=== PATIENT | male | born 1995 | race Caucasian/White ===

== ENCOUNTER 2021-08-22 10:09 | Emergency (ER) | payer OTHER ==
[~2021-08-22] VITALS: Ht 172.7 cm; Wt 90.0 kg
[2021-08-22] MEDS ORDERED: OLANZAPINE 10 MG/VIAL IM STA (10:21)
[2021-08-22] MEDS ORDERED: MIDAZOLAM HCL 2 MG/2 ML VIAL IM ONE (10:30)
[2021-08-22 10:40] LABS: EOSINOPHILS % 1.9 % (0.0-5.0); HEMATOCRIT. 45.6 % (42.0-52.0); HEMOGLOBIN. 15.4 g/dL (14.0-18.0); MEAN CORPUSCULAR HEMOGLOBIN 29.9 pg (28.0-32.0); MEAN CORPUSCULAR VOLUME 88.6 fL (80.0-94.0); MEAN PLATELET VOLUME 7.1 fl (7.4-10.4); MONOCYTES % 9.3 % (2.0-8.0); NEUTROPHILS % 53.8 % (40.0-76.0); PLATELET 360 x1000/uL (130-400); RED BLOOD CELL COUNT 5.15 mill/uL (4.7-6.1); RED CELL DISTRIBUTION WIDTH 14.1 % (11.6-14.6)
[2021-08-22 10:41] LABS: CHLORIDE 107 mEq/L (98-107)
[2021-08-22 10:49] LABS: ETHANOL BLOOD < 10 mg/dL
[2021-08-22 12:00] LABS: CLARITY URINE CLEAR (CLEAR); COLOR URINE DARK YELLOW (YELLOW); KETONES URINE TRACE (NEGATIVE); LEUKOCYTE ESTERASE URINE NEGATIVE (NEGATIVE); NITRITE URINE NEGATIVE (NEGATIVE); OCCULT BLOOD URINE NEGATIVE (NEGATIVE); PH URINE 5.5 (4.5-8.0); PROTEIN URINE 3+ (NEGATIVE)
[2021-08-22 12:20] LABS: *AMPHETAMINES SCREEN URINE PRESUMTIVE POSITIVE (NEGATIVE); *BARBITURATES SCREEN URINE NEGATIVE (NEGATIVE); *BENZODIAZEPINES SCREEN URINE NEGATIVE (NEGATIVE); *COCAINE SCREEN URINE NEGATIVE (NEGATIVE); CANNABINOID URINE SCREEN NEGATIVE (NEGATIVE); METHADONE URINE SCREEN NEGATIVE (NEGATIVE); OPIATES URINE SCREEN NEGATIVE (NEGATIVE); PHENCYCLIDINE URINE SCREEN NEGATIVE (NEGATIVE)
[2021-08-22 13:30] VITALS: BP 110/75
== END 2021-08-22 13:36 ==
LOC: EDBD 10:09 → ER 10:09
DX: T43.621A Poisoning by amphetamines, accidental (unintentional), initial encounter (principal); T40.991A Poisoning by other psychodysleptics [hallucinogens], accidental (unintentional), initial encounter; R55 Syncope and collapse; R45.1 Restlessness and agitation; R00.0 Tachycardia, unspecified; R03.0 Elevated blood-pressure reading, without diagnosis of hypertension; Y92.810 Car as the place of occurrence of the external cause; Z78.1 Physical restraint status
CPT/HCPCS: 36415; 70450; 80053; 80305; 80320; 81003; 85025; 93005; 96372; 99285; J2250; J3490; G0480

== ENCOUNTER 2022-02-19 21:55 | Inpatient (IN) | payer SELFPAY ==
[~2022-02-19] VITALS: Ht 180.3 cm; Wt 88.0 kg
[2022-02-19] MEDS ORDERED: ONDANSETRON HCL 4MG/2ML INJ IV STA (22:37)
[2022-02-19] MEDS ORDERED: SODIUM CHLORIDE 0.9% 1,000 ML IV ONE (22:45)
[2022-02-19] MEDS ORDERED: ETOMIDATE 2MG/ML 10ML VIAL IV ONE (23:15)
[2022-02-19] MEDS ORDERED: MIDAZOLAM HCL 100 MG in DEXT 5% WATER 80 ML IV ONE (23:15)
[2022-02-19] MEDS ORDERED: SUCCINYLCHOLINE CHLORIDE 200MG/10ML IV ONE (23:15)
[2022-02-19] MEDS ORDERED: PROPOFOL 10MG/ML 100ML 100 ML IV ONE (23:15)
[2022-02-19 23:27] LABS: BASOPHILS % 0.4 % (0.0-2.0); EOSINOPHILS % 0.5 % (0.0-5.0); HEMATOCRIT. 44.4 % (42.0-52.0); HEMOGLOBIN. 14.8 g/dL (14.0-18.0); LYMPHOCYTES % 11.5 % (20.0-50.0); MEAN CORPUSCULAR HEMOGLOBIN 29.8 pg (28.0-32.0); MEAN CORPUSCULAR VOLUME 89.5 fL (80.0-94.0); MEAN PLATELET VOLUME 7.4 fl (7.4-10.4); MONOCYTES % 2.6 % (2.0-8.0); PLATELET 318 x1000/uL (130-400); RED BLOOD CELL COUNT 4.96 mill/uL (4.7-6.1); RED CELL DISTRIBUTION WIDTH 13.5 % (11.6-14.6)
[2022-02-19 23:33] LABS: CHLORIDE 104 mEq/L (98-107)
[2022-02-19 23:44] LABS: CREATINE KINASE 64 IU/L (39-308); ETHANOL BLOOD < 10 mg/dL
[2022-02-19] MEDS ORDERED: PROPOFOL 10MG/ML 100ML 100 ML IV PRN (23:45)
[2022-02-20] VITALS (62 sets, daily range): BP systolic 67–135; BP diastolic 37–82
[2022-02-20 00:58] LABS: BG DEOXYHEMOGLOBIN 1.3 % (0.0-5.0); BG FRACTION INSPIRED OXYGEN 100; BG HCO3 ACT 25.9 mmol/L (22.0-26.0); BG METHEMOGLOBIN 0.4 % (0.0-1.5); BG OXYGEN SATURATION 98.7 % (92.0-98.5); BG OXYHEMOGLOBIN 97.3 % (94.0-97.0); BG PCO2 69.8 mmHg (35.0-45.0); BG PH 7.188 (7.350-7.450); BG PO2 151.5 mmHg (75.0-100.0); BG SAMPLE SITE RIGHT RADIAL; BG TOTAL RESPIRATORY RATE 20 b/min; BG VENT MODE VENT - AC
[2022-02-20] MEDS ORDERED: FUROSEMIDE 40MG/4ML VIAL IVP ONE (01:00)
[2022-02-20 03:31] LABS: *AMPHETAMINES SCREEN URINE PRESUMTIVE POSITIVE (NEGATIVE); *BARBITURATES SCREEN URINE NEGATIVE (NEGATIVE); *BENZODIAZEPINES SCREEN URINE PRESUMTIVE POSITIVE (NEGATIVE); *COCAINE SCREEN URINE NEGATIVE (NEGATIVE); CANNABINOID URINE SCREEN PRESUMTIVE POSITIVE (NEGATIVE); METHADONE URINE SCREEN NEGATIVE (NEGATIVE); OPIATES URINE SCREEN NEGATIVE (NEGATIVE); PHENCYCLIDINE URINE SCREEN NEGATIVE (NEGATIVE)
[2022-02-20] MEDS ORDERED: ONDANSETRON HCL 4MG/2ML INJ IV PRN (05:30)
[2022-02-20] MEDS ORDERED: ACETAMINOPHEN 325MG TABLET PO PRN (05:30)
[2022-02-20] MEDS ORDERED: DIPHENHYDRAMINE 50MG/ML VIAL IV PRN (05:30)
[2022-02-20] MEDS ORDERED: CLONIDINE 0.1MG TABLET PO PRN (05:30)
[2022-02-20] MEDS ORDERED: AZITHROMYCIN 500 MG in DEXT 5% WATER 250 ML IV SCH (05:30)
[2022-02-20] MEDS ORDERED: PROPOFOL 200MG/20ML VIAL IV ONE (06:15)
[2022-02-20] MEDS ORDERED: CEFTRIAXONE 1 G PREMIX 50 ML IV SCH (06:45)
[2022-02-20] MEDS ORDERED: PROPOFOL 10MG/ML 100ML 100 ML IV PRN (09:30)
[2022-02-20 09:48] LABS: BG BASE EXCESS -0.3 mmol/L (-2.0-2.0); BG CARBOXYHEMOGLOBIN 0.9 % (0.5-1.5); BG FRACTION INSPIRED OXYGEN 100; BG HCO3 ACT 25.7 mmol/L (22.0-26.0); BG METHEMOGLOBIN 0.6 % (0.0-1.5); BG OXYHEMOGLOBIN 98.5 % (94.0-97.0); BG PH 7.356 (7.350-7.450); BG PO2 496.7 mmHg (75.0-100.0); BG SAMPLE SITE RIGHT RADIAL; BG TOTAL HEMOGLOBIN 15.3 g/dL (12.0-18.0); BG VENT MODE VENT - AC
[2022-02-20] MEDS: MIDAZOLAM HCL 100 MG in SODIUM CHLORIDE 0.9% 80 ML IV PRN ×2 (10:38→20:50)
[2022-02-20] MEDS: FUROSEMIDE 40MG/4ML VIAL IV SCH (10:38)
[2022-02-20] MEDS: AZITHROMYCIN 500 MG in DEXT 5% WATER 250 ML IV SCH (11:42)
[2022-02-20] MEDS: CEFTRIAXONE 1,000 MG in DEXTROSE 5% WATER 50 ML IV SCH (13:37)
[2022-02-20] MEDS: IPRATROPIUM/ALBUTEROL 0.5-3(2.5)MG/3ML NEB HHN SCH (13:41)
[2022-02-20 13:44] LABS: CREATINE KINASE 54 IU/L (39-308); CREATINE KINASE MB FRACTION < 1.0 ng/mL (0.5-3.6)
[2022-02-21] VITALS (54 sets, daily range): BP systolic 87–147; BP diastolic 51–88
[2022-02-21] MEDS: PROPOFOL 10MG/ML 100ML 100 ML IV PRN ×4 (03:48→23:00)
[2022-02-21 05:42] LABS: BASOPHILS % 0.4 % (0.0-2.0); HEMATOCRIT. 42.8 % (42.0-52.0); HEMOGLOBIN. 14.3 g/dL (14.0-18.0); LYMPHOCYTES % 16.4 % (20.0-50.0); MEAN CORPUSCULAR HEMOGLOBIN 29.7 pg (28.0-32.0); MEAN CORPUSCULAR VOLUME 89.2 fL (80.0-94.0); MEAN PLATELET VOLUME 7.9 fl (7.4-10.4); MONOCYTES % 4.9 % (2.0-8.0); NEUTROPHILS % 77.3 % (40.0-76.0); PLATELET 197 x1000/uL (130-400); RED CELL DISTRIBUTION WIDTH 13.6 % (11.6-14.6)
[2022-02-21 08:16] LABS: BG BASE EXCESS 2.1 mmol/L (-2.0-2.0); BG DEOXYHEMOGLOBIN 2.1 % (0.0-5.0); BG HCO3 ACT 27.5 mmol/L (22.0-26.0); BG METHEMOGLOBIN 0.3 % (0.0-1.5); BG OXYGEN SATURATION 97.9 % (92.0-98.5); BG OXYHEMOGLOBIN 96.6 % (94.0-97.0); BG PCO2 45.9 mmHg (35.0-45.0); BG PH 7.396 (7.350-7.450); BG PO2 99.9 mmHg (75.0-100.0); BG SAMPLE SITE RIGHT RADIAL; BG TOTAL HEMOGLOBIN 14.7 g/dL (12.0-18.0); BG VENT MODE VENT - AC
[2022-02-21] MEDS ORDERED: LORAZEPAM 2MG/ML CPJ IV PRN (09:45)
[2022-02-21] MEDS ORDERED: RISPERIDONE 1MG TABLET PO NR (09:45)
[2022-02-21] MEDS: IPRATROPIUM/ALBUTEROL 0.5-3(2.5)MG/3ML NEB HHN SCH (09:47)
[2022-02-21] MEDS: MIDAZOLAM HCL 100 MG in SODIUM CHLORIDE 0.9% 80 ML IV PRN (09:59)
[2022-02-21] MEDS: FUROSEMIDE 40MG/4ML VIAL IV SCH (10:00)
[2022-02-21 10:21] LABS: CHLORIDE 103 mEq/L (98-107)
[2022-02-21] MEDS: CEFTRIAXONE 1,000 MG in DEXTROSE 5% WATER 50 ML IV SCH (11:14)
[2022-02-21] MEDS: AZITHROMYCIN 500 MG in DEXT 5% WATER 250 ML IV SCH (11:14)
[2022-02-21] MEDS: SODIUM CHLORIDE 0.9% 1,000 ML IV SCH ×2 (11:15→21:52)
[2022-02-21 13:21] LABS: CLARITY URINE CLEAR (CLEAR); COLOR URINE YELLOW (YELLOW); KETONES URINE NEGATIVE (NEGATIVE); LEUKOCYTE ESTERASE URINE 1+ (NEGATIVE); NITRITE URINE NEGATIVE (NEGATIVE); OCCULT BLOOD URINE NEGATIVE (NEGATIVE); PH URINE 5.5 (4.5-8.0); PROTEIN URINE NEGATIVE (NEGATIVE); SPECIFIC GRAVITY URINE 1.006 (1.005-1.030)
[2022-02-21] MEDS ORDERED: IOHEXOL-350 100 ML BOTTLE ONE (14:42)
[2022-02-21] MEDS: IPRATROPIUM BROMIDE (0.02%) 0.5MG/2.5ML NEB HHN SCH ×2 (15:13→20:29)
[2022-02-21] MEDS: ACETYLCYSTEINE 100MG/ML 10% VIAL 4ML INH SCH (15:13)
[2022-02-21] MEDS ORDERED: ACETAMINOPHEN 650MG/20.3ML UDC PO PRN (16:45)
[2022-02-21] MEDS ORDERED: ACETAMINOPHEN 325MG TABLET NG PRN (17:30)
[2022-02-21] MEDS ORDERED: FENTANYL CITRATE/PF 50MCG/ML 2ML VIAL IV NR (18:15)
[2022-02-21] MEDS ORDERED: FENTANYL 2500MCG/250ML PMX 250 ML IV ONE (19:00)
[2022-02-21] MEDS: FENTANYL CITRATE 2,500 MCG in SODIUM CHLORIDE 0.9% 200 ML IV PRN (19:53)
[2022-02-21] MEDS: RISPERIDONE 1MG TABLET PO SCH (21:20)
[2022-02-22] VITALS (59 sets, daily range): BP systolic 69–135; BP diastolic 33–80
[2022-02-22] MEDS: IPRATROPIUM BROMIDE (0.02%) 0.5MG/2.5ML NEB HHN SCH ×4 (00:26→21:34)
[2022-02-22] MEDS: ACETYLCYSTEINE 100MG/ML 10% VIAL 4ML INH SCH ×3 (00:26→14:47)
[2022-02-22] MEDS: PROPOFOL 10MG/ML 100ML 100 ML IV PRN ×4 (04:19→19:09)
[2022-02-22 05:33] LABS: BASOPHILS % 0.4 % (0.0-2.0); EOSINOPHILS % 3.4 % (0.0-5.0); HEMATOCRIT. 38.6 % (42.0-52.0); HEMOGLOBIN. 13.2 g/dL (14.0-18.0); LYMPHOCYTES % 18.8 % (20.0-50.0); MEAN CORPUSCULAR HEMOGLOBIN 29.7 pg (28.0-32.0); MEAN CORPUSCULAR VOLUME 86.8 fL (80.0-94.0); MEAN PLATELET VOLUME 7.9 fl (7.4-10.4); NEUTROPHILS % 72.4 % (40.0-76.0); PLATELET 202 x1000/uL (130-400); RED BLOOD CELL COUNT 4.44 mill/uL (4.7-6.1); RED CELL DISTRIBUTION WIDTH 13.7 % (11.6-14.6)
[2022-02-22 05:47] LABS: CHLORIDE 102 mEq/L (98-107)
[2022-02-22] MEDS: RISPERIDONE 1MG TABLET PO SCH (08:23)
[2022-02-22] MEDS: FUROSEMIDE 40MG/4ML VIAL IV SCH (08:23)
[2022-02-22 09:05] LABS: BG BASE EXCESS 2.1 mmol/L (-2.0-2.0); BG CARBOXYHEMOGLOBIN 1.8 % (0.5-1.5); BG DEOXYHEMOGLOBIN 1.1 % (0.0-5.0); BG FRACTION INSPIRED OXYGEN 35; BG HCO3 ACT 27.9 mmol/L (22.0-26.0); BG METHEMOGLOBIN 0.3 % (0.0-1.5); BG OXYGEN SATURATION 98.9 % (92.0-98.5); BG OXYHEMOGLOBIN 96.8 % (94.0-97.0); BG PCO2 48.2 mmHg (35.0-45.0); BG PO2 110.1 mmHg (75.0-100.0); BG SAMPLE SITE RIGHT RADIAL; BG TOTAL HEMOGLOBIN 13.5 g/dL (12.0-18.0); BG VENT MODE VENT - AC
[2022-02-22] MEDS: AZITHROMYCIN 500 MG in DEXT 5% WATER 250 ML IV SCH (11:40)
[2022-02-22] MEDS: SODIUM CHLORIDE 0.9% 1,000 ML IV SCH ×2 (11:40→20:06)
[2022-02-22] MEDS: CEFTRIAXONE 1,000 MG in DEXTROSE 5% WATER 50 ML IV SCH (13:05)
[2022-02-22] MEDS: METRONIDAZOLE 500MG TABLET PO SCH (15:28)
[2022-02-23] VITALS (63 sets, daily range): BP systolic 101–149; BP diastolic 52–92
[2022-02-23] MEDS: IPRATROPIUM BROMIDE (0.02%) 0.5MG/2.5ML NEB HHN SCH ×4 (00:59→19:42)
[2022-02-23] MEDS: ACETYLCYSTEINE 100MG/ML 10% VIAL 4ML INH SCH ×3 (00:59→14:54)
[2022-02-23] MEDS: PROPOFOL 10MG/ML 100ML 100 ML IV PRN ×4 (04:06→22:03)
[2022-02-23] MEDS: RISPERIDONE 1MG TABLET PO SCH ×3 (04:35→21:10)
[2022-02-23] MEDS: METRONIDAZOLE 500MG TABLET PO SCH ×4 (04:35→21:10)
[2022-02-23 04:57] LABS: BASOPHILS % 0.4 % (0.0-2.0); EOSINOPHILS % 4.4 % (0.0-5.0); HEMATOCRIT. 36.1 % (42.0-52.0); HEMOGLOBIN. 12.5 g/dL (14.0-18.0); LYMPHOCYTES % 25.9 % (20.0-50.0); MEAN CORPUSCULAR HEMOGLOBIN 29.7 pg (28.0-32.0); MEAN CORPUSCULAR VOLUME 85.9 fL (80.0-94.0); MEAN PLATELET VOLUME 7.1 fl (7.4-10.4); MONOCYTES % 8.4 % (2.0-8.0); NEUTROPHILS % 60.9 % (40.0-76.0); PLATELET 241 x1000/uL (130-400); RED BLOOD CELL COUNT 4.21 mill/uL (4.7-6.1); RED CELL DISTRIBUTION WIDTH 13.5 % (11.6-14.6)
[2022-02-23 05:16] LABS: CHLORIDE 104 mEq/L (98-107)
[2022-02-23] MEDS: SODIUM CHLORIDE 0.9% 1,000 ML IV SCH ×3 (08:23→23:24)
[2022-02-23 08:47] LABS: BG BASE EXCESS 6.6 mmol/L (-2.0-2.0); BG CARBOXYHEMOGLOBIN 0.1 % (0.5-1.5); BG DEOXYHEMOGLOBIN 2.1 % (0.0-5.0); BG HCO3 ACT 32.5 mmol/L (22.0-26.0); BG METHEMOGLOBIN 0.3 % (0.0-1.5); BG OXYGEN SATURATION 97.9 % (92.0-98.5); BG OXYHEMOGLOBIN 97.5 % (94.0-97.0); BG PCO2 51.8 mmHg (35.0-45.0); BG PH 7.416 (7.350-7.450); BG PO2 104.3 mmHg (75.0-100.0); BG SAMPLE SITE RIGHT RADIAL; BG TOTAL HEMOGLOBIN 13.3 g/dL (12.0-18.0); BG VENT MODE VENT - AC
[2022-02-23] MEDS: FUROSEMIDE 40MG/4ML VIAL IV SCH (09:14)
[2022-02-23] MEDS: AZITHROMYCIN 500 MG in DEXT 5% WATER 250 ML IV SCH (10:14)
[2022-02-23] MEDS: CEFTRIAXONE 1,000 MG in DEXTROSE 5% WATER 50 ML IV SCH (12:15)
[2022-02-23] MEDS: PANTOPRAZOLE SODIUM 40 MG/VIAL IV SCH (13:51)
[2022-02-23] MEDS: ENOXAPARIN 40MG/0.4ML SYR SUBCUT SCH (13:51)
[2022-02-23] MEDS: CEFAZOLIN 2,000 MG in DEXT 5% WATER 100 ML IV SCH ×2 (13:53→21:10)
[2022-02-24] VITALS (76 sets, daily range): BP systolic 95–134; BP diastolic 34–94
[2022-02-24] MEDS: IPRATROPIUM BROMIDE (0.02%) 0.5MG/2.5ML NEB HHN SCH ×3 (00:38→14:36)
[2022-02-24] MEDS: ACETYLCYSTEINE 100MG/ML 10% VIAL 4ML INH SCH ×3 (00:38→14:36)
[2022-02-24] MEDS: PROPOFOL 10MG/ML 100ML 100 ML IV PRN ×4 (01:24→22:57)
[2022-02-24 05:38] LABS: CHLORIDE 102 mEq/L (98-107)
[2022-02-24] MEDS: CEFAZOLIN 2,000 MG in DEXT 5% WATER 100 ML IV SCH ×3 (05:40→22:46)
[2022-02-24] MEDS: METRONIDAZOLE 500MG TABLET PO SCH ×3 (05:41→22:58)
[2022-02-24 07:38] LABS: BASOPHILS % 0.5 % (0.0-2.0); EOSINOPHILS % 6.5 % (0.0-5.0); HEMATOCRIT. 36.9 % (42.0-52.0); HEMOGLOBIN. 12.5 g/dL (14.0-18.0); LYMPHOCYTES % 32.2 % (20.0-50.0); MEAN CORPUSCULAR HEMOGLOBIN 29.2 pg (28.0-32.0); MEAN CORPUSCULAR VOLUME 86.2 fL (80.0-94.0); MEAN PLATELET VOLUME 6.9 fl (7.4-10.4); MONOCYTES % 11.6 % (2.0-8.0); NEUTROPHILS % 49.2 % (40.0-76.0); PLATELET 252 x1000/uL (130-400); RED BLOOD CELL COUNT 4.27 mill/uL (4.7-6.1); RED CELL DISTRIBUTION WIDTH 13.4 % (11.6-14.6)
[2022-02-24] MEDS: FENTANYL CITRATE 2,500 MCG in SODIUM CHLORIDE 0.9% 200 ML IV PRN (07:38)
[2022-02-24] MEDS: FUROSEMIDE 40MG/4ML VIAL IV SCH (08:11)
[2022-02-24] MEDS: RISPERIDONE 1MG TABLET PO SCH ×2 (08:11→22:43)
[2022-02-24] MEDS: PANTOPRAZOLE SODIUM 40 MG/VIAL IV SCH (08:11)
[2022-02-24] MEDS: ENOXAPARIN 40MG/0.4ML SYR SUBCUT SCH (08:12)
[2022-02-24 08:41] LABS: BG BASE EXCESS 4.1 mmol/L (-2.0-2.0); BG CARBOXYHEMOGLOBIN 0.3 % (0.5-1.5); BG DEOXYHEMOGLOBIN 2.4 % (0.0-5.0); BG HCO3 ACT 29.4 mmol/L (22.0-26.0); BG METHEMOGLOBIN 0.3 % (0.0-1.5); BG OXYGEN SATURATION 97.6 % (92.0-98.5); BG PCO2 46.4 mmHg (35.0-45.0); BG PH 7.419 (7.350-7.450); BG SAMPLE SITE RIGHT RADIAL; BG TOTAL HEMOGLOBIN 13.1 g/dL (12.0-18.0); BG VENT MODE VENT - AC
[2022-02-24] MEDS ORDERED: RISPERIDONE 1MG TABLET PO NR (11:45)
[2022-02-24] MEDS: GUAIFENESIN 200MG/10ML SUGAR FREE UDC PO SCH ×2 (12:11→19:00)
[2022-02-24] MEDS: AZITHROMYCIN 500 MG in DEXT 5% WATER 250 ML IV SCH (12:13)
[2022-02-24] MEDS: IPRATROPIUM/ALBUTEROL 0.5-3(2.5)MG/3ML NEB HHN SCH ×2 (16:40→20:32)
[2022-02-24] MEDS: SODIUM CHLORIDE 0.9% 1,000 ML IV SCH (16:42)
[2022-02-24] MEDS ORDERED: GUAIFENESIN 600MG ER TABLET PO SCH (21:00)
[2022-02-25] VITALS (60 sets, daily range): BP systolic 102–144; BP diastolic 54–85
[2022-02-25] MEDS: ACETYLCYSTEINE 100MG/ML 10% VIAL 4ML INH SCH ×4 (01:01→23:57)
[2022-02-25] MEDS: IPRATROPIUM/ALBUTEROL 0.5-3(2.5)MG/3ML NEB HHN SCH ×7 (01:01→23:58)
[2022-02-25] MEDS: PROPOFOL 10MG/ML 100ML 100 ML IV PRN ×6 (02:15→22:55)
[2022-02-25 05:37] LABS: BASOPHILS % 0.8 % (0.0-2.0); EOSINOPHILS % 5.8 % (0.0-5.0); HEMATOCRIT. 36.6 % (42.0-52.0); HEMOGLOBIN. 12.7 g/dL (14.0-18.0); LYMPHOCYTES % 31.7 % (20.0-50.0); MEAN CORPUSCULAR HEMOGLOBIN 29.7 pg (28.0-32.0); MEAN CORPUSCULAR VOLUME 85.6 fL (80.0-94.0); MEAN PLATELET VOLUME 7.4 fl (7.4-10.4); MONOCYTES % 11.6 % (2.0-8.0); NEUTROPHILS % 50.1 % (40.0-76.0); PLATELET 263 x1000/uL (130-400); RED BLOOD CELL COUNT 4.27 mill/uL (4.7-6.1); RED CELL DISTRIBUTION WIDTH 13.4 % (11.6-14.6)
[2022-02-25 06:05] LABS: CHLORIDE 106 mEq/L (98-107)
[2022-02-25] MEDS: CEFAZOLIN 2,000 MG in DEXT 5% WATER 100 ML IV SCH ×3 (06:12→22:33)
[2022-02-25] MEDS: METRONIDAZOLE 500MG TABLET PO SCH ×3 (06:16→20:05)
[2022-02-25] MEDS: GUAIFENESIN 200MG/10ML SUGAR FREE UDC PO SCH ×5 (07:21→22:56)
[2022-02-25 08:28] LABS: BG BASE EXCESS 2.2 mmol/L (-2.0-2.0); BG CARBOXYHEMOGLOBIN 0.8 % (0.5-1.5); BG DEOXYHEMOGLOBIN 1.6 % (0.0-5.0); BG FRACTION INSPIRED OXYGEN 35; BG HCO3 ACT 26.1 mmol/L (22.0-26.0); BG METHEMOGLOBIN 0.3 % (0.0-1.5); BG OXYGEN SATURATION 98.4 % (92.0-98.5); BG OXYHEMOGLOBIN 97.3 % (94.0-97.0); BG PCO2 38.4 mmHg (35.0-45.0); BG PH 7.451 (7.350-7.450); BG PO2 110.7 mmHg (75.0-100.0); BG SAMPLE SITE RIGHT RADIAL; BG TOTAL HEMOGLOBIN 13.3 g/dL (12.0-18.0); BG VENT MODE VENT - AC
[2022-02-25] MEDS: PANTOPRAZOLE SODIUM 40 MG/VIAL IV SCH (08:54)
[2022-02-25] MEDS: ENOXAPARIN 40MG/0.4ML SYR SUBCUT SCH (08:54)
[2022-02-25] MEDS: RISPERIDONE 1MG TABLET PO SCH ×2 (08:54→20:05)
[2022-02-25] MEDS: SODIUM CHLORIDE 0.9% 1,000 ML IV SCH ×2 (08:54→14:59)
[2022-02-25] MEDS: FUROSEMIDE 40MG/4ML VIAL IV SCH (08:54)
[2022-02-25] MEDS ORDERED: LORAZEPAM 2MG/ML CPJ IV NR (11:00)
[2022-02-26] VITALS (81 sets, daily range): BP systolic 90–164; BP diastolic 26–130
[2022-02-26] MEDS: PROPOFOL 10MG/ML 100ML 100 ML IV PRN ×6 (02:21→20:36)
[2022-02-26] MEDS: SODIUM CHLORIDE 0.9% 1,000 ML IV SCH ×2 (02:21→13:13)
[2022-02-26] MEDS: IPRATROPIUM/ALBUTEROL 0.5-3(2.5)MG/3ML NEB HHN SCH ×5 (03:55→20:54)
[2022-02-26] MEDS: CEFAZOLIN 2,000 MG in DEXT 5% WATER 100 ML IV SCH ×3 (05:10→21:21)
[2022-02-26] MEDS: GUAIFENESIN 200MG/10ML SUGAR FREE UDC PO SCH ×4 (05:10→23:58)
[2022-02-26] MEDS: METRONIDAZOLE 500MG TABLET PO SCH ×3 (05:10→21:21)
[2022-02-26 05:33] LABS: HEMATOCRIT. 36.8 % (42.0-52.0); HEMOGLOBIN. 12.7 g/dL (14.0-18.0); MEAN CORPUSCULAR HEMOGLOBIN 29.8 pg (28.0-32.0); MEAN CORPUSCULAR VOLUME 86.3 fL (80.0-94.0); MEAN PLATELET VOLUME 7.3 fl (7.4-10.4); PLATELET 267 x1000/uL (130-400); RED BLOOD CELL COUNT 4.26 mill/uL (4.7-6.1); RED CELL DISTRIBUTION WIDTH 13.3 % (11.6-14.6)
[2022-02-26 05:49] LABS: CHLORIDE 105 mEq/L (98-107)
[2022-02-26] MEDS: ACETYLCYSTEINE 100MG/ML 10% VIAL 4ML INH SCH (07:40)
[2022-02-26] MEDS: FENTANYL CITRATE 2,500 MCG in SODIUM CHLORIDE 0.9% 200 ML IV PRN (08:14)
[2022-02-26] MEDS: FUROSEMIDE 40MG/4ML VIAL IV SCH (08:32)
[2022-02-26] MEDS: RISPERIDONE 1MG TABLET PO SCH ×2 (08:32→21:58)
[2022-02-26] MEDS: ENOXAPARIN 40MG/0.4ML SYR SUBCUT SCH (08:32)
[2022-02-26] MEDS: PANTOPRAZOLE SODIUM 40 MG/VIAL IV SCH (08:32)
[2022-02-26 08:48] LABS: BG CARBOXYHEMOGLOBIN 0.6 % (0.5-1.5); BG DEOXYHEMOGLOBIN 2.9 % (0.0-5.0); BG HCO3 ACT 30.4 mmol/L (22.0-26.0); BG METHEMOGLOBIN 0.3 % (0.0-1.5); BG OXYGEN SATURATION 97.1 % (92.0-98.5); BG OXYHEMOGLOBIN 96.2 % (94.0-97.0); BG PCO2 42.9 mmHg (35.0-45.0); BG PH 7.468 (7.350-7.450); BG PO2 88.6 mmHg (75.0-100.0); BG SAMPLE SITE RIGHT RADIAL; BG TOTAL HEMOGLOBIN 13.1 g/dL (12.0-18.0); BG VENT MODE VENT - AC
[2022-02-26 15:20] LABS: PLATELET ESTIMATE NORMAL
[2022-02-26] MEDS ORDERED: FENTANYL 2500MCG/250ML PMX 250 ML IV ONE (22:45)
[2022-02-26] MEDS ORDERED: FENTANYL CITRATE 2,500 MCG in SODIUM CHLORIDE 0.9% 200 ML IV PRN (23:00)
[2022-02-27] VITALS (41 sets, daily range): BP systolic 97–155; BP diastolic 49–90
[2022-02-27] MEDS: IPRATROPIUM/ALBUTEROL 0.5-3(2.5)MG/3ML NEB HHN SCH ×6 (00:35→21:21)
[2022-02-27] MEDS: PROPOFOL 10MG/ML 100ML 100 ML IV PRN ×2 (01:54→07:00)
[2022-02-27] MEDS: SODIUM CHLORIDE 0.9% 1,000 ML IV SCH ×3 (04:45→22:23)
[2022-02-27] MEDS: METRONIDAZOLE 500MG TABLET PO SCH ×2 (05:24→13:36)
[2022-02-27] MEDS: GUAIFENESIN 200MG/10ML SUGAR FREE UDC PO SCH ×3 (05:24→17:21)
[2022-02-27] MEDS: CEFAZOLIN 2,000 MG in DEXT 5% WATER 100 ML IV SCH ×3 (05:25→22:00)
[2022-02-27 05:29] LABS: CHLORIDE 103 mEq/L (98-107)
[2022-02-27 05:32] LABS: HEMATOCRIT. 36.6 % (42.0-52.0); HEMOGLOBIN. 12.6 g/dL (14.0-18.0); MEAN CORPUSCULAR HEMOGLOBIN 29.7 pg (28.0-32.0); MEAN CORPUSCULAR VOLUME 86.2 fL (80.0-94.0); MEAN PLATELET VOLUME 7.1 fl (7.4-10.4); PLATELET 302 x1000/uL (130-400); RED BLOOD CELL COUNT 4.25 mill/uL (4.7-6.1); RED CELL DISTRIBUTION WIDTH 13.3 % (11.6-14.6)
[2022-02-27] MEDS: PANTOPRAZOLE SODIUM 40 MG/VIAL IV SCH (07:58)
[2022-02-27] MEDS: ENOXAPARIN 40MG/0.4ML SYR SUBCUT SCH (07:58)
[2022-02-27] MEDS: FUROSEMIDE 40MG/4ML VIAL IV SCH (07:58)
[2022-02-27] MEDS: RISPERIDONE 1MG TABLET PO SCH ×2 (07:58→22:36)
[2022-02-27 09:07] LABS: BG BASE EXCESS 1.8 mmol/L (-2.0-2.0); BG CARBOXYHEMOGLOBIN 0.9 % (0.5-1.5); BG DEOXYHEMOGLOBIN 3.7 % (0.0-5.0); BG FRACTION INSPIRED OXYGEN 30; BG HCO3 ACT 28.2 mmol/L (22.0-26.0); BG METHEMOGLOBIN 0.2 % (0.0-1.5); BG OXYGEN SATURATION 96.3 % (92.0-98.5); BG OXYHEMOGLOBIN 95.2 % (94.0-97.0); BG PCO2 52.1 mmHg (35.0-45.0); BG PH 7.352 (7.350-7.450); BG PO2 85.3 mmHg (75.0-100.0); BG SAMPLE SITE RIGHT BRACHIAL; BG VENT MODE VENT - AC
[2022-02-27 09:57] LABS: BG BASE EXCESS 3.6 mmol/L (-2.0-2.0); BG CARBOXYHEMOGLOBIN 1.2 % (0.5-1.5); BG DEOXYHEMOGLOBIN 4.4 % (0.0-5.0); BG FRACTION INSPIRED OXYGEN 30; BG HCO3 ACT 29.2 mmol/L (22.0-26.0); BG METHEMOGLOBIN 0.2 % (0.0-1.5); BG OXYGEN SATURATION 95.5 % (92.0-98.5); BG OXYHEMOGLOBIN 94.2 % (94.0-97.0); BG PCO2 47.7 mmHg (35.0-45.0); BG PH 7.405 (7.350-7.450); BG PO2 79.5 mmHg (75.0-100.0); BG SAMPLE SITE RIGHT BRACHIAL; BG TOTAL HEMOGLOBIN 14.4 g/dL (12.0-18.0); BG VENT MODE VENT - CPAP
[2022-02-27 12:44] LABS: PLATELET ESTIMATE NORMAL
[2022-02-27] MEDS ORDERED: RACEPINEPHRINE 2.25% 0.5ML NEB VIAL HHN NR (13:00)
[2022-02-27] MEDS ORDERED: DIPHENHYDRAMINE 25MG CAPSULE PO PRN (21:00)
[2022-02-28] MEDS: IPRATROPIUM/ALBUTEROL 0.5-3(2.5)MG/3ML NEB HHN SCH ×2 (05:09)
[2022-02-28] MEDS: CEFAZOLIN 2,000 MG in DEXT 5% WATER 100 ML IV SCH ×2 (06:00→14:00)
[2022-02-28] MEDS: GUAIFENESIN 200MG/10ML SUGAR FREE UDC PO SCH ×2 (06:37)
[2022-02-28] MEDS: ENOXAPARIN 40MG/0.4ML SYR SUBCUT SCH (09:00)
[2022-02-28] MEDS: FUROSEMIDE 40MG/4ML VIAL IV SCH (09:00)
[2022-02-28] MEDS: SODIUM CHLORIDE 0.9% 1,000 ML IV SCH (09:30)
[2022-02-28] MEDS: RISPERIDONE 1MG TABLET PO SCH (10:57)
[2022-02-28 13:45] VITALS: BP 112/68
[2022-02-28 16:00] VITALS: BP 115/66
[2022-02-28] MEDS ORDERED: IPRATROPIUM BROMIDE (0.02%) 0.5MG/2.5ML NEB HHN SCH (16:00)
[2022-02-28] MEDS ORDERED: ALBUTEROL (0.083%) 2.5MG/3ML NEB HHN SCH (16:00)
[2022-02-28] MEDS ORDERED: GUAIFENESIN 600MG ER TABLET PO SCH (21:00)
== END 2022-02-28 17:28 | disposition left against medical advice (07) | DRG 720 ==
LOC: ER 21:55 → MICUSO 02-20 02:47 → 6EST 02-28 13:53
PROVIDERS: ADMIT Family Medicine Adult Medicine; ATTEND Family Medicine Adult Medicine
PROC: 5A1955Z Respiratory Ventilation, Greater than 96 Consecutive Hours (ICD-10-PCS; principal; 2022-02-20)
PROC: 0BH17EZ Insertion of Endotracheal Airway into Trachea, Via Natural or Artificial Opening (ICD-10-PCS; 2022-02-20)
DX: A41.59 Other Gram-negative sepsis (principal); G92.8 Other toxic encephalopathy; J96.01 Acute respiratory failure with hypoxia; J96.02 Acute respiratory failure with hypercapnia; E72.20 Disorder of urea cycle metabolism, unspecified; J15.0 Pneumonia due to Klebsiella pneumoniae; E87.29 Other acidosis; T50.901A Poisoning by unspecified drugs, medicaments and biological substances, accidental (unintentional), initial encounter; Z20.822 Contact with and (suspected) exposure to COVID-19; Z53.29 Procedure and treatment not carried out because of patient's decision for other reasons; Y92.89 Other specified places as the place of occurrence of the external cause
CPT/HCPCS: 31500; 36415; 36600; 71045; 71275; 80048; 80053; 80305; 80307; 80320; 80329; 81003; 82140; 82375; 82550; 82553; 82805; 83605; 83880; 84145; 84478; 84484; 85025; 85379; 87070; 87077; 87186; 87426; 93005; 93970; 94003; 94640; 99291; C9113; C9803; J0456; J0690; J0696; J1200; J1650; J1940; J2060; J2250; J2405; J2704; J3010; J7030; J7050; J7060; J7608; Q0163; Q9967; G0480